=== PATIENT | male | born 1965 | race African-American/Black ===

== ENCOUNTER → 2020-03-11 | Outpatient (CLI) | payer OTHER ==
--- NOTE | 2020-03-11 17:09 | RAD ---
EXAM: SCROTAL SONOGRAM WITH DOPPLER. HISTORY: Palpable focus right testicle. COMPARISON: None. FINDINGS: Grayscale and Doppler analysis of the scrotum and contents was performed. Fat and peristalsing bowel loops extend into the inguinal region and right hemiscrotum, consistent with a moderate to large hernia. The right testicle measures 3.9 x 3.6 x 2.1 cm. The parenchyma is homogeneous without suspicious focal lesions. A few microliths are noted. The epididymis appears normal. Internal flow is normal. There is a small hydrocele. There is a small right varicocele with venous radicles measuring up to 3 mm. The left testicle measures 4.9 x 2.6 x 2.2 cm. The parenchyma is homogeneous without suspicious focal lesions. A few microliths are noted. The epididymis appears normal. Internal flow is normal. There is a small hydrocele. IMPRESSION: 1. A right inguinal hernia extends into the right hemiscrotum and contains multiple small bowel loops. 2. No suspicious testicular mass. Mild bilateral testicular microlithiasis is not clearly a risk factor for testicular malignancy in isolation. If there are other risk factors for testicular malignancy, sporadic urologic and imaging follow-up could be considered. 3. Small right varicocele. Abdomen/pelvis CT could be considered if there is concern for gonadal vein obstruction. Electronically signed by: Livan Silveira MD (03/11/2020 5:06 PM) [id number]
== END | disposition home or self-care (01) ==
LOC: US 12:59 → EEVIPCON 13:00
PROVIDERS: ATTEND Preventive Medicine Occupational Medicine
DX: I86.1 Scrotal varices (principal); N43.3 Hydrocele, unspecified; N50.89 Other specified disorders of the male genital organs
CPT/HCPCS: 76870